=== PATIENT | female | born 1940 | race Caucasian/White ===

== ENCOUNTER 2017-02-15 23:26 | Inpatient (IN) | payer OTHER ==
[~2017-02-15] VITALS: Ht 152.4 cm; Wt 58.3 kg
[~2017-02-15 23:26] MED LIST: ACYCLOVIR800 MG PO; ALPRAZOLAM0.25 MG PO; AMBIEN5 MG PO; BETAMETHASONE D15 GM TP; CALCIUM + D 601 EACH PO; CALCIUM 500 MG1 EACH PO; CEFTIN250 MG PO; CENTRUM SILVER1 EAC3 PO; CITRATE OF MAG296 ML PO; COUMADIN6 MG PO; COZAAR100 MG PO; DIOVAN HCT 1601 EACH PO; DIOVAN160 MG PO; ENDOCET 5-3251 EACH PO; FLONASE16 G1 BOTH NARES; HYDROCET 5-5001 EACH PO; KEFLEX500 MG PO; LIDOCAINE20 MG/1 M5 PO; LOSARTAN POTAS100 MG PO; LOVENOX60 MG/0.6 SC; MAALOX ADVANCE355 ML PO; NORCO 5/3251 TABLET PO; ONDANSETRON ODT4 MG PO; OXYCODONE HCL5 MG PO; PERCOCET 7.51 TABLET PO; PRAVACHOL10 MG PO; PRAVACHOL40 MG PO; PRAVASTATIN SOD40 MG PO; PREDNISONE10 MG PO; PRILOSEC40 MG PO; PROAIR HFA8.5 GM IH; PROTONIX40 MG PO; SIMVASTATIN40 MG PO; TRAMADOL HCL50 MG PO; ULTRAM50 MG PO; VICODIN ES PO; ZOCOR40 MG PO; ZOFRAN ODT4 MG PO; ZOLPIDEM TARTRAT5 MG PO
[2017-02-16 00:17] LABS: EOSINOPHIL (%) 1.6 % (0-5); EOSINOPHIL COUNT 0.1 K/uL (0-0.3); HEMATOCRIT 40.3 % (36.0-46.0); IMMATURE GRANULOCYTE (%) 0.3 % (0.0-0.7); INSTRUMENT ABS NEUTROPHIL CT 5.6 K/uL; LYMPHOCYTE COUNT 1.3 K/uL (1.0-2.8); MCH 30.9 PG (29.0-34.0); MCHC 33.5 G/DL (30.0-36.0); MCV 92.2 FL (83-99); MEAN PLAT.VOLUME 9.6 uM^3 (9.5-12.4); MONOCYTE (%) 6.8 % (3-12); MONOCYTE COUNT 0.5 K/uL (0-0.8); NEUTROPHIL (%) 73.9 % (45-76); NEUTROPHIL COUNT 5.6 K/uL (1.8-6.4); PLATELET COUNT 283 K/uL (156-360); RBC DIS.WIDTH-CV 13.1 % (11.8-14.6); RED BLOOD COUNT 4.37 M/uL (3.80-5.20); WHITE BLOOD COUNT 7.5 K/uL (4.1-10.2)
[2017-02-16 00:29] LABS: CHLORIDE 105 mEq/L (99-109); POTASSIUM 3.5 mEq/L (3.7-5.4); SODIUM 140 mEq/L (136-147)
[2017-02-16 00:31] LABS: GLUCOSE 123 mg/dL (70-99)
[2017-02-16 00:32] LABS: ANION GAP 12 MEQ/L (2-14)
[2017-02-16 00:33] LABS: TOTAL BILIRUBIN 0.4 mg/dL (0.0-1.0)
[2017-02-16 00:34] LABS: ALKALINE PHOSPHATASE 70 IU/L (3-129)
[2017-02-16 00:35] LABS: GFR ESTIMATE (CALCULATED) 42 mL/min/
[2017-02-16 00:36] LABS: UREA NITROGEN (BUN) 25 mg/dL (9-23)
[2017-02-16 00:38] LABS: LIPASE 8 U/L (1.0-51.0)
[2017-02-16 01:31] LABS: ADD MIUA? YES; BILIRUBIN NEGATIVE; BLOOD SMALL; COLOR STRAW ((YELLOW)); GLUCOSE (STRIP) NEGATIVE; KETONES NEGATIVE; LEUKOCYTES SMALL; NITRITE NEGATIVE; PROTEIN (STRIP) NEGATIVE; SPECIFIC GRAVITY 1.025 (1.000-1.030); UROBILINOGEN 0.2 MG/DL (0.2-1.0)
[2017-02-16] MEDS ORDERED: WARFARIN SODIUM1 MG PO (01:33)
[2017-02-16] MEDS ORDERED: WARFARIN SODIUM5 MG PO (01:33)
[2017-02-16] MEDS ORDERED: PRAVASTATIN SOD40 MG PO (01:34)
[2017-02-16] MEDS ORDERED: ENDOCET 7.5-321 EACH PO (01:34)
[2017-02-16 01:35] LABS: BACTERIA NONE SEEN /HPF; EPITHELIAL CELLS 1+ /HPF; MUCUS TRACE /LPF; UCUL ADDED? NO; WHITE BLOOD CELLS 0-5 /HPF (0-5)
[2017-02-16] MEDS ORDERED: ANTIVERT12.5 MG PO (01:35)
[2017-02-16] MEDS ORDERED: DONEPEZIL HCL5 MG PO (01:35)
[2017-02-16] MEDS ORDERED: CENTRUM SILVER1 EAC3 PO (01:36)
[2017-02-16] MEDS ORDERED: LEVAQUIN500 MG PO (01:36)
[2017-02-16 03:33] LABS: INTER. NORMALIZED RATIO 2.3; PROTHROMBIN TIME 24.1 (9.2-11.2); PTT 35.7 (25-32)
[2017-02-16 03:56] VITALS: BP 125/67
[2017-02-16 07:51] VITALS: BP 123/72
[2017-02-16 08:42] LABS: EOSINOPHIL (%) 0.8 % (0-5); EOSINOPHIL COUNT 0.1 K/uL (0-0.3); HEMATOCRIT 38.2 % (36.0-46.0); IMMATURE GRANULOCYTE (%) 0.2 % (0.0-0.7); INSTRUMENT ABS NEUTROPHIL CT 4.3 K/uL; LYMPHOCYTE COUNT 1.2 K/uL (1.0-2.8); MCH 30.2 PG (29.0-34.0); MCHC 32.2 G/DL (30.0-36.0); MCV 93.9 FL (83-99); MEAN PLAT.VOLUME 9.5 uM^3 (9.5-12.4); MONOCYTE (%) 7.9 % (3-12); MONOCYTE COUNT 0.5 K/uL (0-0.8); NEUTROPHIL (%) 71.6 % (45-76); NEUTROPHIL COUNT 4.3 K/uL (1.8-6.4); PLATELET COUNT 249 K/uL (156-360); RBC DIS.WIDTH-CV 13.2 % (11.8-14.6); RBC DIS.WIDTH-SD 45.2 % (39-53); RED BLOOD COUNT 4.07 M/uL (3.80-5.20); WHITE BLOOD COUNT 6.1 K/uL (4.1-10.2)
[2017-02-16 08:56] LABS: ANION GAP 9 MEQ/L (2-14); CHLORIDE 109 MEQ/L (99-109); GFR ESTIMATE (CALCULATED) 57 mL/min/; GLUCOSE 98 mg/dL (70-99); POTASSIUM 4.1 MEQ/L (3.7-5.4); SAMPLE HEMOLYSIS CHECK 0; SAMPLE ICTERIC CHECK 0; SAMPLE LIPEMIA CHECK 0; SODIUM 140 MEQ/L (136-147); UREA NITROGEN (BUN) 20 mg/dL (9-23)
[2017-02-16 09:06] LABS: INTER. NORMALIZED RATIO 2.3; PROTHROMBIN TIME 24.1 (9.2-11.2)
[2017-02-16 11:55] VITALS: BP 139/72
[2017-02-16 16:22] VITALS: BP 152/92
[2017-02-16 20:01] VITALS: BP 141/93
[2017-02-16 23:43] VITALS: BP 167/79
[2017-02-17 04:03] VITALS: BP 165/76
[2017-02-17 06:25] LABS: HEMATOCRIT 37.8 % (36.0-46.0); MCH 30.8 PG (29.0-34.0); MCHC 32.5 G/DL (30.0-36.0); MCV 94.7 FL (83-99); MEAN PLAT.VOLUME 9.4 uM^3 (9.5-12.4); PLATELET COUNT 222 K/uL (156-360); RBC DIS.WIDTH-CV 13.2 % (11.8-14.6); RBC DIS.WIDTH-SD 46.5 % (39-53); RED BLOOD COUNT 3.99 M/uL (3.80-5.20)
[2017-02-17 06:47] LABS: INTER. NORMALIZED RATIO 2.1
[2017-02-17 06:53] LABS: ANION GAP 7 MEQ/L (2-14); CHLORIDE 114 MEQ/L (99-109); GFR ESTIMATE (CALCULATED) > 59 mL/min/; GLUCOSE 92 mg/dL (70-99); POTASSIUM 4.3 MEQ/L (3.7-5.4); SAMPLE HEMOLYSIS CHECK 0; SAMPLE ICTERIC CHECK 0; SAMPLE LIPEMIA CHECK 0; SODIUM 142 MEQ/L (136-147); UREA NITROGEN (BUN) 18 mg/dL (9-23)
[2017-02-17 07:37] VITALS: BP 160/77
[2017-02-17 11:33] VITALS: BP 175/81
== END 2017-02-17 14:02 | disposition left against medical advice (07) | DRG 392 ==
LOC: EME → EDBD 23:26 → EDOF 02-16 02:49 → 3EAST 02-16 03:49
PROVIDERS: Emergency Medicine; Hospitalist; Physician Assistant
DX: K44.0 Diaphragmatic hernia with obstruction, without gangrene (principal); K59.00 Constipation, unspecified; I10 Essential (primary) hypertension; E78.5 Hyperlipidemia, unspecified; G89.4 Chronic pain syndrome; M19.90 Unspecified osteoarthritis, unspecified site; M41.9 Scoliosis, unspecified; Z86.711 Personal history of pulmonary embolism; Z86.718 Personal history of other venous thrombosis and embolism; Z79.01 Long term (current) use of anticoagulants; Z87.891 Personal history of nicotine dependence
CPT/HCPCS: 71010; 74177; 80048; 80053; 81003; 83605; 83690; 85025; 85025 91; 85027; 85610; 85730; 93005; 99281; 99285; C9113; J1885; J2270; J2405; J2765; J3010; J3480; J7030

== ENCOUNTER 2017-06-23 09:39 | Emergency (ER) | payer OTHER ==
[~2017-06-23] VITALS: Ht 165.1 cm; Wt 56.2 kg
[~2017-06-23 09:39] MED LIST changes: +ANTIVERT12.5 MG PO; +DONEPEZIL HCL5 MG PO; +ENDOCET 7.5-321 EACH PO; +LEVAQUIN500 MG PO; +WARFARIN SODIUM1 MG PO; +WARFARIN SODIUM5 MG PO
[2017-06-23] MEDS ORDERED: VALTREX1000 MG PO (10:08)
[2017-06-23 10:39] VITALS: BP 158/81
== END 2017-06-23 10:44 | disposition home or self-care (01) ==
LOC: EME 09:39
DX: B02.9 Zoster without complications (principal); I10 Essential (primary) hypertension; E78.5 Hyperlipidemia, unspecified; J45.909 Unspecified asthma, uncomplicated; M19.90 Unspecified osteoarthritis, unspecified site; Z79.01 Long term (current) use of anticoagulants
CPT/HCPCS: 99281; 99282

== ENCOUNTER 2017-09-15 19:00 | Emergency (ER) | payer OTHER ==
[~2017-09-15] VITALS: Ht 152.4 cm; Wt 58.0 kg
[~2017-09-15 19:00] MED LIST changes: +VALTREX1000 MG PO
[2017-09-15] MEDS ORDERED: FIORICET 50-301 EAC1 PO (23:15)
[2017-09-15] MEDS ORDERED: MOTRIN600 MG PO (23:15)
[2017-09-15] MEDS ORDERED: REGLAN5 MG PO (23:15)
[2017-09-15 23:54] VITALS: BP 157/101
== END 2017-09-15 23:56 | disposition home or self-care (01) ==
LOC: EME 19:00
DX: R51 Headache (principal); R11.0 Nausea; J34.89 Other specified disorders of nose and nasal sinuses; I10 Essential (primary) hypertension; E78.5 Hyperlipidemia, unspecified; Z90.710 Acquired absence of both cervix and uterus; Z79.01 Long term (current) use of anticoagulants
CPT/HCPCS: 70450; 70486; 99281; 99284

== ENCOUNTER 2018-03-10 16:52 | Emergency (ER) | payer OTHER ==
[~2018-03-10] VITALS: Ht 165.1 cm; Wt 56.3 kg
[~2018-03-10 16:52] MED LIST changes: +FIORICET 50-301 EAC1 PO; +MOTRIN600 MG PO; +REGLAN5 MG PO
[2018-03-10 17:51] LABS: HEMATOCRIT 37.8 % (36.0-46.0); HEMOGLOBIN 12.8 G/DL (11.9-15.5); MCH 32.6 PG (29.0-34.0); MCHC 33.9 G/DL (30.0-36.0); MCV 96.2 FL (83-99); PLATELET COUNT 260 K/uL (156-360); RBC DIS.WIDTH-CV 13.8 % (11.8-14.6); RBC DIS.WIDTH-SD 49.1 % (39-53); RED BLOOD COUNT 3.93 M/uL (3.80-5.20)
[2018-03-10 18:01] LABS: CHLORIDE 112 mEq/L (99-109); POTASSIUM 4.1 mEq/L (3.7-5.4); SODIUM 146 mEq/L (136-147)
[2018-03-10 18:02] LABS: GLUCOSE 95 mg/dL (70-99)
[2018-03-10 18:06] LABS: CREATININE 0.9 mg/dL (0.6-1.3); GFR ESTIMATE (CALCULATED) > 59 mL/min/
[2018-03-10 18:07] LABS: UREA NITROGEN (BUN) 20 mg/dL (9-23)
[2018-03-10 18:11] LABS: TROP-I INTERPRETATION NEGATIVE; TROPONIN-I 0.03 ng/mL (0.0-0.30)
[2018-03-10 18:59] VITALS: BP 144/95
== END 2018-03-10 18:59 | disposition home or self-care (01) ==
LOC: EME 16:52
PROVIDERS: Emergency Medicine
DX: S20.219A Contusion of unspecified front wall of thorax, initial encounter (principal); Y04.2XXA Assault by strike against or bumped into by another person, initial encounter; Y07.499 Other family member, perpetrator of maltreatment and neglect; I10 Essential (primary) hypertension; E78.5 Hyperlipidemia, unspecified; J45.909 Unspecified asthma, uncomplicated; M41.9 Scoliosis, unspecified; M19.90 Unspecified osteoarthritis, unspecified site; F32.9 Major depressive disorder, single episode, unspecified; Z85.828 Personal history of other malignant neoplasm of skin; Z90.710 Acquired absence of both cervix and uterus; Z79.01 Long term (current) use of anticoagulants; Z88.6 Allergy status to analgesic agent
CPT/HCPCS: 71046; 80048; 84484; 85027; 93005; 99281; 99284